=== PATIENT | female | born 2000 | race Caucasian/White ===

== ENCOUNTER 2022-10-02 12:01 | Emergency (ER) | payer OTHER ==
[~2022-10-02] VITALS: Ht 165.1 cm; Wt 60.3 kg
[2022-10-02] MEDS ORDERED: DIAZ2 (12:30)
[2022-10-02 13:32] LABS: BASOPHILS ABSOLUTE AUTO 0.09 K/mm3 (0.00-0.23); BASOPHILS PERCENT AUTO 0 % (0-2); EOSINOPHILS ABSOLUTE AUTO 0.07 K/mm3 (0.00-0.68); EOSINOPHILS PERCENT AUTO 0 % (0-6); Hematocrit 42.1 % (33.0-51.0); Hemoglobin 14.7 g/dL (11.5-16.0); IMMATURE GRAN ABSOLUTE AUTO 0.48 K/mm3 (0.00-0.10); IMMATURE GRAN PERCENT AUTO 2 % (0-1); LYMPHOCYTES ABSOLUTE AUTO 2.43 K/mm3 (0.84-5.20); LYMPHOCYTES PERCENT AUTO 8 % (21-46); MONOCYTES ABSOLUTE AUTO 0.65 K/mm3 (0.16-1.47); MONOCYTES PERCENT AUTO 2 % (4-13); Mean Corpuscular HGB 28.3 pg (26.0-34.0); Mean Corpuscular HGB Conc 34.9 g/dL (31.5-36.5); Mean Corpuscular Volume 81 fL (80-100); Mean Platelet Volume 10.4 fL (9.1-12.4); NEUTROPHILS ABSOLUTE AUTO 26.03 K/mm3 (1.96-9.15); NEUTROPHILS PERCENT AUTO 88 % (41-73); Platelet Count 268 K/mm3 (150-400); RDW Coefficient Variation 12.4 % (11.7-14.2); RDW Standard Deviation 36.2 fL (35.1-46.3); White Blood Cell Count 29.75 K/mm3 (4.00-11.30)
[2022-10-02 13:49] LABS: Albumin, Blood 3.5 g/dL (3.4-5.0); Albumin/Globulin Ratio 0.8 (0.8-1.8); Bilirubin, Total 0.8 mg/dL (0.1-1.0); Calcium, Blood 9.2 mg/dL (8.5-10.1); Globulin, Blood 4.5 g/dL (2.2-4.0); Potassium, Blood 3.8 mmol/L (3.5-5.5)
[2022-10-02 15:53] LABS: Source, Urine Clean Catch
[2022-10-02 16:02] LABS: Appearance, Urine Clear (Clear); Bilirubin, Urine Neg (Neg); Blood, Urine 1+ (Neg); Color, Urine Yellow (P-Yellow); Glucose Qualitative, Urine Neg (Neg); Ketones, Urine Neg (Neg); Leukocyte Esterase, Urine 2+ (Neg); Nitrite, Urine Neg (Neg); Protein, Urine 2+ (Neg); Urobilinogen, Urine NORM (Normal)
[2022-10-02 16:08] LABS: Bacteria Many /hpf; Squamous Epithelial Cells Mod /hpf (Few); Transitional Epithelial Cells Rare /hpf (0-Rare)
[2022-10-02 19:25] VITALS: BP 107/66
== END 2022-10-02 19:23 | disposition left against medical advice (07) ==
LOC: ER 12:01 → MEDS 12:02
PROVIDERS: Student in an Organized Health Care Education/Training Program
DX: N10 Acute pyelonephritis (principal); Z53.29 Procedure and treatment not carried out because of patient's decision for other reasons; Z91.013 Allergy to seafood
CPT/HCPCS: 36415; 74177; 80053; 81001; 81025; 83605; 83690; 84703; 85025; 87040; 87086; 96361; 96365-59; 96375; 99284-25; J0696; J1170; J1885; J2405; J7030; Q9967